=== PATIENT | male | born 1975 | race Caucasian/White ===

== ENCOUNTER 2022-06-19 15:23 | Inpatient (IN) | payer OTHER ==
[~2022-06-19] VITALS: Ht 167.6 cm; Wt 84.3 kg
[2022-06-19] MEDS ORDERED: METF-1211 PO (15:41)
[2022-06-19] MEDS ORDERED: INSU100V SQ (15:41)
[2022-06-19] MEDS ORDERED: KETOROLAC TROMETHAMINE 30 MG/ML VIAL IVP ONE (16:00)
[2022-06-19] MEDS ORDERED: ONDANSETRON HCL 4 MG/2 ML VIAL IVP ONE (16:00)
[2022-06-19] MEDS ORDERED: SODIUM CHLORIDE 0.9% 1,000 ML IV ONE ×2 (16:00→17:00)
[2022-06-19 16:11] LABS: BASOPHILS % (AUTO) 0.1 % (0.0-2.0); EOSINOPHILS % (AUTO) 0.2 % (1.0-6.0); LYMPHOCYTES # (AUTO) 0.6 K/uL (1.0-4.8); LYMPHOCYTES % (AUTO) 8.7 % (22.0-44.0); MEAN CORPUSCULAR HEMOGLOBIN 28.3 pg (26.0-34.0); MEAN CORPUSCULAR HGB CONC 33.4 G/dL (31.0-37.0); MEAN CORPUSCULAR VOLUME 85 fL (80-100); MONOCYTES # (AUTO) 0.3 K/uL (0.1-1.0); MONOCYTES % (AUTO) 4.4 % (2.0-9.0); NEUTROPHILS # (AUTO) 6.1 K/uL (1.8-7.7); PLATELET COUNT (AUTO) 217 K/uL (150-450); RED BLOOD CELL COUNT(AUTO) 4.94 MIL/uL (4.50-5.90); RED CELL DISTRIBUTION WIDTH 13.6 % (11.5-14.5)
[2022-06-19 16:12] LABS: NEUTROPHILS % (AUTO) 86.6 % (40.0-70.0)
[2022-06-19 16:40] LABS: COVID AG,FIA SOURCE NASOPHARYNGEAL
[2022-06-19 16:44] LABS: ALKALINE PHOSPHATASE 126 U/L (46-116); ANION GAP 6 mmol/L (8-16); ASPARTATE AMINOTRANSFERASE 12 U/L (15-37); BILIRUBIN,TOTAL 0.5 mg/dL (0.1-1.0); CALCIUM, TOTAL 9.3 mg/dL (8.8-10.5); CARBON DIOXIDE 27 mmol/L (22-29); CHLORIDE 95 mmol/L (98-107); CREATININE 1.08 mg/dL (0.60-1.30); POTASSIUM 4.2 mmol/L (3.5-5.1); SODIUM SERUM 128 mmol/L (136-145); TOTAL PROTEIN, SERUM 7.1 g/dL (6.4-8.2); UREA NITROGEN, BLOOD 16 mg/dL (7-18)
[2022-06-19 16:45] LABS: GLOMERULAR FILTR. RATE CALC > 60 mL/min (>60)
[2022-06-19 16:46] LABS: GLUCOSE,RANDOM 559 mg/dL (70-110)
[2022-06-19 16:54] LABS: ALANINE AMINOTRANSFERASE 21 U/L (12-78); ALBUMIN 3.9 g/dL (3.4-5.0)
[2022-06-19] MEDS ORDERED: INSULIN REGULAR, HUMAN 100 UNITS/ML IVP ONE (17:00)
[2022-06-19 17:34] LABS: AMPHET/METH SCREEN,URINE NEGATIVE (NEGATIVE); BARBITURATE SCREEN, URINE NEGATIVE (NEGATIVE); BENZODIAZEPINES SCREEN,URINE NEGATIVE (NEGATIVE); CANNABINOID SCREEN,URINE POSITIVE (NEGATIVE); COCAINE SCREEN,URINE NEGATIVE (NEGATIVE); METHADONE SCREEN, URINE NEGATIVE (NEGATIVE); OPIATE SCREEN,URINE NEGATIVE (NEGATIVE); PHENCYCLIDINE SCREEN,URINE NEGATIVE (NEGATIVE)
[2022-06-19] MEDS ORDERED: DiphenhydrAMINE HCL 50 MG/ML VIAL IVP ONE (18:15)
[2022-06-19 18:16] LABS: GLUCOSE,POINT OF CARE 243 MG/DL (70-110)
[2022-06-19] MEDS ORDERED: DEXTROSE 50%-WATER 25 GM/50 ML SYRINGE IVP PRN (18:30)
[2022-06-19] MEDS ORDERED: RINGERS SOLUTION,LACTATED 1,000 ML IV ONE ×2 (18:30→19:45)
[2022-06-19] MEDS ORDERED: SODIUM CHLORIDE 0.9% 100 ML ONE (19:43)
[2022-06-19] MEDS ORDERED: IOHEXOL 350 MG/ML 100 ML VIAL ONE (19:43)
[2022-06-19 19:58] LABS: APPEARANCE,URINE CLEAR (CLEAR); BILIRUBIN,URINE NEGATIVE (NEGATIVE); GLUCOSE, URINE (UA) >=1000 mg/dL (NEGATIVE); LEUKOCYTE ESTERASE ,URINE NEGATIVE (NEGATIVE); NITRATE,URINE NEGATIVE (NEGATIVE); OCCULT BLOOD,URINE NEGATIVE (NEGATIVE); PH,URINE 7.5 (5.0-8.0); PROTEIN,URINE NEGATIVE (NEGATIVE); SPECIFIC GRAVITIY, URINE 1.017 (1.003-1.030); UROBILINOGEN,URINE <=1.0 mg/dL (<=1.0)
[2022-06-19 20:06] LABS: BACTERIA,URINE None Seen /HPF (None Seen); RBC,URINE None Seen /HPF (0-2); WBC,URINE None Seen /HPF (0-5)
[2022-06-19] MEDS: LORazepam 2 MG TABLET PO PRN (21:18)
[2022-06-19] MEDS: INSULIN LISPRO 100 UNITS/ML SQ PRN (21:20)
[2022-06-19] MEDS: INSULIN GLARGINE,HUM.REC.ANLOG 100 UNITS/ML SQ SCH (21:20)
[2022-06-19 21:44] VITALS: BP 135/73
[2022-06-20] MEDS: HEPARIN SODIUM,PORCINE 5,000 UNITS/ML VIAL SQ SCH ×4 (00:57→23:25)
[2022-06-20] MEDS: ACETAMINOPHEN 325 MG TABLET PO PRN ×3 (01:03→11:29)
[2022-06-20 01:06] VITALS: BP 148/76
[2022-06-20 04:56] VITALS: BP 142/70
[2022-06-20] MEDS: LORazepam 2 MG TABLET PO PRN (05:23)
[2022-06-20] MEDS ORDERED: LORazepam 2 MG TABLET PO PRN (07:00)
[2022-06-20 07:36] LABS: GLUCOMETER DEV NAME(LOC) 6N.1; GLUCOSE,POINT OF CARE 241 MG/DL (70-110)
[2022-06-20 07:36] LABS: GLUCOMETER DEV NAME(LOC) 6N.2B; GLUCOSE,POINT OF CARE 114 MG/DL (70-110)
[2022-06-20 07:36] LABS: GLUCOMETER DEV NAME(LOC) 6N.2B; GLUCOSE,POINT OF CARE 147 MG/DL (70-110)
[2022-06-20 08:00] VITALS: BP 157/93
[2022-06-20] MEDS ORDERED: LORazepam 2 MG/ML VIAL IVP PRN (10:45)
[2022-06-20] MEDS ORDERED: ATOR40TA71 PO (11:11)
[2022-06-20] MEDS ORDERED: FLUT16H NASAL (11:11)
[2022-06-20] MEDS ORDERED: EMPA25TA3 PO (11:11)
[2022-06-20] MEDS ORDERED: LORA10TA7 PO (11:11)
[2022-06-20] MEDS ORDERED: INSU3INS3 SQ (11:11)
[2022-06-20] MEDS: INSULIN LISPRO 100 UNITS/ML SQ PRN ×3 (11:29→20:49)
[2022-06-20] MEDS: KETOROLAC TROMETHAMINE 15 MG/ML VIAL IVP PRN ×2 (12:44→19:50)
[2022-06-20 13:21] LABS: GLUCOMETER DEV NAME(LOC) 6N.1; GLUCOSE,POINT OF CARE 191 MG/DL (70-110)
[2022-06-20 14:29] LABS: MAGNESIUM 1.9 mg/dL (1.80-2.40); PHOSPHORUS 2.8 mg/dL (2.5-4.9)
[2022-06-20 15:45] VITALS: BP 131/93
[2022-06-20] MEDS ORDERED: LORazepam 2 MG/ML VIAL IVP ONE (16:45)
[2022-06-20] MEDS: ONDANSETRON HCL 4 MG/2 ML VIAL IVP PRN (16:57)
[2022-06-20 18:21] LABS: GLUCOMETER DEV NAME(LOC) 6N.2B; GLUCOSE,POINT OF CARE 205 MG/DL (70-110)
[2022-06-20 19:57] VITALS: BP 141/84
[2022-06-20] MEDS: LORazepam 2 MG/ML VIAL IVP PRN (20:49)
[2022-06-20] MEDS: INSULIN GLARGINE,HUM.REC.ANLOG 100 UNITS/ML SQ SCH (20:50)
[2022-06-20] MEDS ORDERED: DiphenhydrAMINE HCL 50 MG/ML VIAL IVP ONE (23:15)
[2022-06-20 23:36] LABS: GLUCOMETER DEV NAME(LOC) 6N.1; GLUCOSE,POINT OF CARE 250 MG/DL (70-110)
[2022-06-21] MEDS: LORazepam 2 MG/ML VIAL IVP PRN ×3 (02:52→17:08)
[2022-06-21] MEDS: KETOROLAC TROMETHAMINE 15 MG/ML VIAL IVP PRN ×3 (02:52→21:04)
[2022-06-21 05:24] VITALS: BP 143/96
[2022-06-21] MEDS: INSULIN LISPRO 100 UNITS/ML SQ PRN ×2 (05:35→21:04)
[2022-06-21 06:51] LABS: GLUCOMETER DEV NAME(LOC) 6N.2B; GLUCOSE,POINT OF CARE 168 MG/DL (70-110)
[2022-06-21 07:31] VITALS: BP 133/78
[2022-06-21] MEDS: MULTIVITAMINS WITH MINERALS, THERAPEUTIC TABLET PO SCH (08:10)
[2022-06-21] MEDS: FOLIC ACID 1 MG TABLET PO SCH (08:10)
[2022-06-21] MEDS: THIAMINE 100 MG TABLET PO SCH (08:10)
[2022-06-21] MEDS: HEPARIN SODIUM,PORCINE 5,000 UNITS/ML VIAL SQ SCH ×3 (08:10→23:50)
[2022-06-21] MEDS: ONDANSETRON HCL 4 MG/2 ML VIAL IVP PRN (17:08)
[2022-06-21 19:56] LABS: GLUCOMETER DEV NAME(LOC) 6N.1; GLUCOSE,POINT OF CARE 182 MG/DL (70-110)
[2022-06-21 20:30] VITALS: BP 144/86
[2022-06-21] MEDS: INSULIN GLARGINE,HUM.REC.ANLOG 100 UNITS/ML SQ SCH (21:03)
[2022-06-21] MEDS: MELATONIN 3 MG TABLET PO PRN (22:15)
[2022-06-21] MEDS ORDERED: DiphenhydrAMINE HCL 25 MG CAPSULE PO ONE (23:45)
[2022-06-22 00:26] LABS: GLUCOMETER DEV NAME(LOC) 6N.1; GLUCOSE,POINT OF CARE 219 MG/DL (70-110)
[2022-06-22 02:40] VITALS: BP 137/98
[2022-06-22] MEDS: KETOROLAC TROMETHAMINE 15 MG/ML VIAL IVP PRN ×4 (02:40→21:31)
[2022-06-22] MEDS: ONDANSETRON HCL 4 MG/2 ML VIAL IVP PRN ×3 (03:08→15:34)
[2022-06-22 05:10] VITALS: BP 149/103
[2022-06-22] MEDS: INSULIN LISPRO 100 UNITS/ML SQ PRN ×3 (05:43→17:11)
[2022-06-22] MEDS: ACETAMINOPHEN 325 MG TABLET PO PRN ×3 (06:03→19:47)
[2022-06-22] MEDS ORDERED: LORazepam 1 MG TABLET PO PRN (07:00)
[2022-06-22 07:33] VITALS: BP 142/85
[2022-06-22 07:46] LABS: GLUCOMETER DEV NAME(LOC) 6N.2B; GLUCOSE,POINT OF CARE 220 MG/DL (70-110)
[2022-06-22] MEDS: FOLIC ACID 1 MG TABLET PO SCH (08:23)
[2022-06-22] MEDS: MULTIVITAMINS WITH MINERALS, THERAPEUTIC TABLET PO SCH (08:23)
[2022-06-22] MEDS: HEPARIN SODIUM,PORCINE 5,000 UNITS/ML VIAL SQ SCH ×3 (08:23→23:59)
[2022-06-22] MEDS: THIAMINE 100 MG TABLET PO SCH (08:23)
[2022-06-22] MEDS ORDERED: LORazepam 1 MG TABLET PO SCH (09:00)
[2022-06-22 12:36] LABS: GLUCOMETER DEV NAME(LOC) 6N.2B; GLUCOSE,POINT OF CARE 244 MG/DL (70-110)
[2022-06-22 15:24] VITALS: BP 144/91
[2022-06-22 19:38] VITALS: BP 152/97
[2022-06-22] MEDS: MELATONIN 3 MG TABLET PO PRN (19:47)
[2022-06-22] MEDS: INSULIN GLARGINE,HUM.REC.ANLOG 100 UNITS/ML SQ SCH (19:51)
[2022-06-22 22:21] LABS: GLUCOMETER DEV NAME(LOC) 6N.2B; GLUCOSE,POINT OF CARE 232 MG/DL (70-110)
[2022-06-23 00:57] LABS: GLUCOMETER DEV NAME(LOC) 6N.1; GLUCOSE,POINT OF CARE 236 MG/DL (70-110)
[2022-06-23] MEDS: ACETAMINOPHEN 325 MG TABLET PO PRN ×4 (01:53→19:48)
[2022-06-23] MEDS: KETOROLAC TROMETHAMINE 15 MG/ML VIAL IVP PRN ×4 (03:31→21:58)
[2022-06-23 03:40] VITALS: BP 151/106
[2022-06-23] MEDS: INSULIN LISPRO 100 UNITS/ML SQ PRN ×4 (06:19→19:49)
[2022-06-23 06:37] LABS: GLUCOMETER DEV NAME(LOC) 6N.2B; GLUCOSE,POINT OF CARE 219 MG/DL (70-110)
[2022-06-23] MEDS ORDERED: LORazepam 1 MG TABLET PO PRN (07:00)
[2022-06-23 08:28] VITALS: BP 137/91
[2022-06-23] MEDS: FOLIC ACID 1 MG TABLET PO SCH (08:40)
[2022-06-23] MEDS: THIAMINE 100 MG TABLET PO SCH (08:40)
[2022-06-23] MEDS: MULTIVITAMINS WITH MINERALS, THERAPEUTIC TABLET PO SCH (08:40)
[2022-06-23] MEDS: HEPARIN SODIUM,PORCINE 5,000 UNITS/ML VIAL SQ SCH ×3 (08:41→23:35)
[2022-06-23 09:13] LABS: BASOPHILS % (AUTO) 0.2 % (0.0-2.0); EOSINOPHILS % (AUTO) 0 % (1.0-6.0); HEMATOCRIT 47.3 % (41-53); HEMOGLOBIN 16.4 g/dL (13.5-17.5); LYMPHOCYTES # (AUTO) 1.4 K/uL (1.0-4.8); LYMPHOCYTES % (AUTO) 9.2 % (22.0-44.0); MEAN CORPUSCULAR HEMOGLOBIN 28.6 pg (26.0-34.0); MEAN CORPUSCULAR HGB CONC 34.7 G/dL (31.0-37.0); MEAN CORPUSCULAR VOLUME 82 fL (80-100); MONOCYTES # (AUTO) 0.9 K/uL (0.1-1.0); MONOCYTES % (AUTO) 6.1 % (2.0-9.0); NEUTROPHILS # (AUTO) 12.9 K/uL (1.8-7.7); NEUTROPHILS % (AUTO) 84.5 % (40.0-70.0); PLATELET COUNT (AUTO) 323 K/uL (150-450); RED BLOOD CELL COUNT(AUTO) 5.74 MIL/uL (4.50-5.90)
[2022-06-23 09:28] LABS: ANION GAP 16 mmol/L (8-16); CALCIUM, TOTAL 9.5 mg/dL (8.8-10.5); CARBON DIOXIDE 21 mmol/L (22-29); CHLORIDE 99 mmol/L (98-107); CREATININE 1.05 mg/dL (0.60-1.30); GLUCOSE,RANDOM 185 mg/dL (70-110); SODIUM SERUM 136 mmol/L (136-145); UREA NITROGEN, BLOOD 30 mg/dL (7-18)
[2022-06-23 09:47] LABS: GLOMERULAR FILTR. RATE CALC > 60 mL/min (>60); POTASSIUM 2.9 mmol/L (3.5-5.1)
[2022-06-23] MEDS ORDERED: SODIUM CHLORIDE 0.9% 500 ML IV ONE (09:59)
[2022-06-23] MEDS ORDERED: POTASSIUM CHL 10 MEQ/WATER 50 ML IV PRN (10:00)
[2022-06-23] MEDS ORDERED: POTASSIUM CHLORIDE 20 MEQ ER TABLET PO PRN (10:00)
[2022-06-23 15:36] LABS: GLUCOMETER DEV NAME(LOC) 6N.1; GLUCOSE,POINT OF CARE 232 MG/DL (70-110)
[2022-06-23 15:38] LABS: APPEARANCE,URINE CLEAR (CLEAR); BILIRUBIN,URINE NEGATIVE (NEGATIVE); GLUCOSE, URINE (UA) >=1000 mg/dL (NEGATIVE); KETONES,URINE =>150 mg/dL (NEGATIVE); LEUKOCYTE ESTERASE ,URINE NEGATIVE (NEGATIVE); NITRATE,URINE NEGATIVE (NEGATIVE); OCCULT BLOOD,URINE NEGATIVE (NEGATIVE); PH,URINE 5.5 (5.0-8.0); PROTEIN,URINE 30-70 mg/dL (NEGATIVE); SPECIFIC GRAVITIY, URINE 1.038 (1.003-1.030); UROBILINOGEN,URINE <=1.0 mg/dL (<=1.0)
[2022-06-23 15:46] LABS: BACTERIA,URINE Few /HPF (None Seen); RBC,URINE 0-2 /HPF (0-2); WBC,URINE 0-2 /HPF (0-5)
[2022-06-23 15:47] LABS: SQUAMOUS EPITHELIAL CELL,UR Rare /LPF (None Seen); YEAST,URINE None Seen /HPF (None Seen)
[2022-06-23 16:12] VITALS: BP 142/83
[2022-06-23] MEDS: ONDANSETRON HCL 4 MG/2 ML VIAL IVP PRN ×2 (18:11→23:39)
[2022-06-23 18:40] LABS: GLUCOMETER DEV NAME(LOC) 6N.2B; GLUCOSE,POINT OF CARE 248 MG/DL (70-110)
[2022-06-23] MEDS: MELATONIN 3 MG TABLET PO PRN (19:49)
[2022-06-23] MEDS: INSULIN GLARGINE,HUM.REC.ANLOG 100 UNITS/ML SQ SCH (19:51)
[2022-06-23 19:59] VITALS: BP 137/93
[2022-06-23 22:02] LABS: GLUCOMETER DEV NAME(LOC) 6N.2B; GLUCOSE,POINT OF CARE 232 MG/DL (70-110)
[2022-06-24 04:00] VITALS: BP 157/104
[2022-06-24] MEDS: KETOROLAC TROMETHAMINE 15 MG/ML VIAL IVP PRN ×4 (04:04→23:31)
[2022-06-24 04:15] VITALS: BP 140/100
[2022-06-24] MEDS: METOPROLOL TARTRATE 25 MG TABLET PO SCH ×2 (04:24→20:07)
[2022-06-24] MEDS: INSULIN LISPRO 100 UNITS/ML SQ PRN ×3 (06:13→20:04)
[2022-06-24 06:46] LABS: GLUCOMETER DEV NAME(LOC) 6N.2B; GLUCOSE,POINT OF CARE 222 MG/DL (70-110)
[2022-06-24 07:02] LABS: ANION GAP 13 mmol/L (8-16); CALCIUM, TOTAL 9.2 mg/dL (8.8-10.5); CARBON DIOXIDE 21 mmol/L (22-29); CHLORIDE 100 mmol/L (98-107); CREATININE 1.04 mg/dL (0.60-1.30); GLUCOSE,RANDOM 201 mg/dL (70-110); POTASSIUM 3.5 mmol/L (3.5-5.1); SODIUM SERUM 134 mmol/L (136-145); UREA NITROGEN, BLOOD 30 mg/dL (7-18)
[2022-06-24 07:03] LABS: GLOMERULAR FILTR. RATE CALC > 60 mL/min (>60)
[2022-06-24 07:14] LABS: BASOPHILS % (AUTO) 0.2 % (0.0-2.0); EOSINOPHILS % (AUTO) 0.1 % (1.0-6.0); HEMATOCRIT 46.5 % (41-53); HEMOGLOBIN 16.2 g/dL (13.5-17.5); LYMPHOCYTES # (AUTO) 1.9 K/uL (1.0-4.8); LYMPHOCYTES % (AUTO) 10.4 % (22.0-44.0); MEAN CORPUSCULAR HEMOGLOBIN 28.6 pg (26.0-34.0); MEAN CORPUSCULAR HGB CONC 34.7 G/dL (31.0-37.0); MEAN CORPUSCULAR VOLUME 83 fL (80-100); MONOCYTES # (AUTO) 1.2 K/uL (0.1-1.0); MONOCYTES % (AUTO) 6.7 % (2.0-9.0); NEUTROPHILS # (AUTO) 14.9 K/uL (1.8-7.7); NEUTROPHILS % (AUTO) 82.6 % (40.0-70.0); PLATELET COUNT (AUTO) 348 K/uL (150-450); RED BLOOD CELL COUNT(AUTO) 5.64 MIL/uL (4.50-5.90); RED CELL DISTRIBUTION WIDTH 14.1 % (11.5-14.5)
[2022-06-24] MEDS: ONDANSETRON HCL 4 MG/2 ML VIAL IVP PRN ×2 (07:47→23:38)
[2022-06-24] MEDS: HEPARIN SODIUM,PORCINE 5,000 UNITS/ML VIAL SQ SCH ×3 (07:47→23:31)
[2022-06-24 08:03] VITALS: BP 155/97
[2022-06-24] MEDS ORDERED: SODIUM CHLORIDE 0.9% 1,000 ML IV ONE (08:15)
[2022-06-24] MEDS: THIAMINE 100 MG TABLET PO SCH (08:37)
[2022-06-24] MEDS ORDERED: SODIUM CHLORIDE 0.9% 100 ML ONE (08:37)
[2022-06-24] MEDS: FOLIC ACID 1 MG TABLET PO SCH (08:37)
[2022-06-24] MEDS ORDERED: IOHEXOL 350 MG/ML 100 ML VIAL ONE (08:37)
[2022-06-24] MEDS: MULTIVITAMINS WITH MINERALS, THERAPEUTIC TABLET PO SCH (08:38)
[2022-06-24 09:51] LABS: ALANINE AMINOTRANSFERASE 17 U/L (12-78); ALBUMIN 3.9 g/dL (3.4-5.0); ALKALINE PHOSPHATASE 120 U/L (46-116); ASPARTATE AMINOTRANSFERASE 29 U/L (15-37); BILIRUBIN,TOTAL 0.9 mg/dL (0.1-1.0); LIPASE 584 U/L (73-393); TOTAL PROTEIN, SERUM 7.5 g/dL (6.4-8.2)
[2022-06-24] MEDS: ACETAMINOPHEN 325 MG TABLET PO PRN (14:09)
[2022-06-24 15:23] VITALS: BP 160/86
[2022-06-24 16:41] LABS: GLUCOMETER DEV NAME(LOC) 6N.2B; GLUCOSE,POINT OF CARE 135 MG/DL (70-110)
[2022-06-24 19:36] LABS: GLUCOMETER DEV NAME(LOC) 6N.2B; GLUCOSE,POINT OF CARE 196 MG/DL (70-110)
[2022-06-24 19:40] VITALS: BP 161/93
[2022-06-24] MEDS: INSULIN GLARGINE,HUM.REC.ANLOG 100 UNITS/ML SQ SCH (20:06)
[2022-06-24] MEDS: MELATONIN 3 MG TABLET PO PRN (20:07)
[2022-06-24 22:36] LABS: GLUCOMETER DEV NAME(LOC) 6N.1; GLUCOSE,POINT OF CARE 140 MG/DL (70-110)
[2022-06-24 23:42] VITALS: BP 154/90
[2022-06-25] MEDS: ACETAMINOPHEN 325 MG TABLET PO PRN ×2 (01:48→07:59)
[2022-06-25] MEDS: SODIUM CHLORIDE 0.9% 1,000 ML IV SCH ×2 (01:51→12:58)
[2022-06-25] MEDS: ONDANSETRON HCL 4 MG/2 ML VIAL IVP PRN (05:54)
[2022-06-25] MEDS: KETOROLAC TROMETHAMINE 15 MG/ML VIAL IVP PRN ×2 (05:55→13:05)
[2022-06-25 06:12] LABS: GLUCOMETER DEV NAME(LOC) 6N.2B; GLUCOSE,POINT OF CARE 144 MG/DL (70-110)
[2022-06-25] MEDS: FOLIC ACID 1 MG TABLET PO SCH (08:00)
[2022-06-25] MEDS: THIAMINE 100 MG TABLET PO SCH (08:00)
[2022-06-25] MEDS: HEPARIN SODIUM,PORCINE 5,000 UNITS/ML VIAL SQ SCH ×2 (08:00→15:59)
[2022-06-25] MEDS: MULTIVITAMINS WITH MINERALS, THERAPEUTIC TABLET PO SCH (08:00)
[2022-06-25] MEDS: METOPROLOL TARTRATE 25 MG TABLET PO SCH (08:00)
[2022-06-25 08:12] VITALS: BP 140/87
[2022-06-25 10:53] LABS: HEMATOCRIT 44.3 % (41-53); HEMOGLOBIN 14.9 g/dL (13.5-17.5); MEAN CORPUSCULAR HEMOGLOBIN 28.1 pg (26.0-34.0); MEAN CORPUSCULAR VOLUME 84 fL (80-100)
[2022-06-25 10:54] LABS: BASOPHILS % (AUTO) 0.3 % (0.0-2.0); EOSINOPHILS % (AUTO) 0.1 % (1.0-6.0); LYMPHOCYTES # (AUTO) 2.3 K/uL (1.0-4.8); LYMPHOCYTES % (AUTO) 16.5 % (22.0-44.0); MEAN CORPUSCULAR HGB CONC 33.6 G/dL (31.0-37.0); NEUTROPHILS # (AUTO) 10.6 K/uL (1.8-7.7); NEUTROPHILS % (AUTO) 76.1 % (40.0-70.0); PLATELET COUNT (AUTO) 330 K/uL (150-450); RED CELL DISTRIBUTION WIDTH 13.6 % (11.5-14.5)
[2022-06-25] MEDS: INSULIN LISPRO 100 UNITS/ML SQ PRN (12:55)
[2022-06-25 15:16] LABS: GLUCOMETER DEV NAME(LOC) 6N.1; GLUCOSE,POINT OF CARE 130 MG/DL (70-110)
== END 2022-06-25 17:07 | disposition left against medical advice (07) | DRG 73 ==
LOC: EMS 15:26 → 6S 19:16
PROVIDERS: ADMIT Internal Medicine; ATTEND Internal Medicine
DX: E11.43 Type 2 diabetes mellitus with diabetic autonomic (poly)neuropathy (principal); K85.90 Acute pancreatitis without necrosis or infection, unspecified; E87.1 Hypo-osmolality and hyponatremia; F11.13 Opioid abuse with withdrawal; F10.139 Alcohol abuse with withdrawal, unspecified; K31.84 Gastroparesis; E11.65 Type 2 diabetes mellitus with hyperglycemia; F19.10 Other psychoactive substance abuse, uncomplicated; E66.9 Obesity, unspecified; I10 Essential (primary) hypertension; E78.00 Pure hypercholesterolemia, unspecified; F10.129 Alcohol abuse with intoxication, unspecified; Z20.822 Contact with and (suspected) exposure to COVID-19; Z53.29 Procedure and treatment not carried out because of patient's decision for other reasons; Z79.4 Long term (current) use of insulin; Z91.199 Patient's noncompliance with other medical treatment and regimen due to unspecified reason; Z68.30 Body mass index [BMI] 30.0-30.9, adult; Z79.899 Other long term (current) drug therapy
CPT/HCPCS: 71045; 74177; 76700; 80048; 80053; 80307; 81001; 82948; 82962; 83690; 83735; 84100; 84132; 84295; 84484; 85025; 93005; 99285; G0480; J1200; J1644; J1815; J1885; J2060; J2405; J3480; J7030; J7040; J7050; J7120; Q9967; 36415-L1; 36415-TC